=== PATIENT | male | born 1955 | race Caucasian/White ===

== ENCOUNTER → 2018-03-19 11:43 | Outpatient (CLI) | payer OTHER, SELFPAY ==
--- NOTE | 2018-03-19 | DI.CT.S_ITS ---
PROCEDURE: CT CERVICAL SPINE WO CON INDICATIONS: Arthrodesis status TECHNIQUE: Noncontrast 3 mm thick sections acquired from the skull base to the T4 level. Sagittal and coronal reformats were then constructed. For radiation dose reduction, the following was used: automated exposure control, adjustment of mA and/or kV according to patient size. COMPARISON: [facility], CR, CERVICAL SPINE 2 OR 3 VIEWS, 08/19/2014, 8:59. [facility], MR, C-SPINE WITHOUT CONTRAST, 07/09/2014, 15:05. FINDINGS: Image quality: Excellent. Bones: Postoperative changes are seen, with an anterior cervical spine fusion plate at the C4-C7 levels. The fusion plate appears well seated. No findings of hardware failure or hardware loosening are seen. Disc spacers are seen throughout the fused region. No displaced fractures are seen. No suspicious lytic or blastic lesions are seen. Stable underlying degenerative changes are seen. Mild levoconvex upper thoracic scoliotic curvature is seen. Visualized superior ribs are intact. Soft tissues: Prevertebral soft tissues are normal in thickness. No paravertebral hematomas. No apical pneumothoraces. Incidental note is made of an azygos lobe. IMPRESSION: Postoperative changes within normal limits. Dictated by: Larry Johnson M.D. on 03/19/2018 at 11:40 Approved by: Larry Johnson M.D. on 03/19/2018 at 11:43
== END ==
PROVIDERS: PCP Family Medicine; Visit Provider Orthopaedic Surgery Orthopaedic Surgery of the Spine
DX: Z98.1 Arthrodesis status (principal)
CPT/HCPCS: 72125

== ENCOUNTER → 2020-06-01 10:41 | Outpatient (CLI) | payer OTHER, SELFPAY ==
--- NOTE | 2020-06-01 10:45 | DI.CT.S_ITS ---
PROCEDURE: CT CERVICAL SPINE WO CON INDICATIONS: Pain in thoracic spine TECHNIQUE: Noncontrast 3 mm thick sections acquired from the skull base to the T4 level. Sagittal and coronal reformats were then constructed. For radiation dose reduction, the following was used: automated exposure control, adjustment of mA and/or kV according to patient size. COMPARISON: [facility], CR, XR CHEST 2 VIEWS, 07/15/2019, 23:19. [facility], CT, CT CERVICAL SPINE WO CON, 03/19/2018, 11:40. FINDINGS: Image quality: Excellent. Bones: No fractures or dislocations. Visualized superior ribs are intact. A previously present anterior fusion plate spanning from C4 through C7 shows no evidence of loosening or disruption. The morphology of the cervical spine is virtually identical to that present 03/19/18. There is mild posterior bowing of the upper posterior border of C4, as was previously present, producing mild focal spinal stenosis at that site. Soft tissues: Prevertebral soft tissues are normal in thickness. No paravertebral hematomas. No apical pneumothoraces. IMPRESSION: The appearance of the cervical spine is virtually identical to that previously present 03/19/18. A new area of degenerative change or spinal stenosis is not identified. The anterior fusion plate spanning from C4 through C7 is stable over time please note that CT myelography might detect some additional abnormality not visible by noncontrast CT scanning but this is considered unlikely. Additionally, some anterior fusion plates produce less artifact than others during MR scanning and for this reason consideration of MR of the cervical spine may be warranted. Dictated by: Ramsey Parnell M.D. on 06/01/2020 at 11:19 Approved by: Ramsey Parnell M.D. on 06/01/2020 at 11:36
== END ==
PROVIDERS: Referring Provider Orthopaedic Surgery Orthopaedic Surgery of the Spine; Visit Provider Orthopaedic Surgery Orthopaedic Surgery of the Spine
DX: M54.6 Pain in thoracic spine (principal); Z98.1 Arthrodesis status
CPT/HCPCS: 72125

== ENCOUNTER → 2020-10-26 11:56 | Outpatient (CLI) | payer MEDICARE, OTHER, SELFPAY ==
--- NOTE | 2020-10-26 | DI.MRI.S_ITS ---
PROCEDURE: MR SHOULDER LT WO CON INDICATIONS: primary osteoarthritis left shoulder TECHNIQUE: Noncontrast oblique coronal T2 fast spin echo with fat saturation, oblique sagittal T1 spin echo and T2 fast spin echo with fat saturation, axial T1 spin echo and T2 fast spin echo with fat saturation through the shoulder. COMPARISON: None. FINDINGS: Image quality: Excellent. Rotator cuff: Tendinosis and low to moderate grade articular and bursal surface partial thickness tear involving distal supraspinatus at its insertion on the humeral head is seen extending to musculotendinous junction. Distal infraspinatus tendinosis is noted. Distal subscapularis tendon is intact. No full-thickness rotator cuff tendon rupture. Sagittal images demonstrate no significant muscle atrophy. Bones and bursae: No bone marrow contusions or fractures. Moderate acromioclavicular joint osteoarthritic changes are seen with downward osteophyte formation depressing on musculotendinous junction of supraspinatus. Moderate to severe glenohumeral joint osteoarthritic changes also seen. There is small amount of joint fluid and subacromial subdeltoid bursal fluid. Capsule and soft tissues: Global signal abnormality throughout labrum is seen suggestive of extensive labral tear. The glenohumeral ligaments are intact. The long head of the biceps tendon demonstrates normal location and morphology. The rotator interval appears normal, without fibrosis. The coracohumeral ligament is normal in thickness. IMPRESSION: 1. Moderate to severe glenohumeral joint osteoarthritis and moderate acromioclavicular joint osteoarthritis. Small amount of joint fluid and subacromial subdeltoid bursal fluid. 2. Tendinosis and low to moderate grade articular and bursal surface partial thickness tear involving distal supraspinatus extending to musculotendinous junction. Distal infraspinatus tendinosis. 3. Suggestion of extensive left shoulder labral tear. Dictated by: Milan Pavon M.D. on 10/26/2020 at 14:11 Approved by: Milan Pavon M.D. on 10/26/2020 at 14:24
== END ==
PROVIDERS: Referring Provider Orthopaedic Surgery; Visit Provider Orthopaedic Surgery
DX: M75.42 Impingement syndrome of left shoulder (principal); M19.012 Primary osteoarthritis, left shoulder; M75.112 Incomplete rotator cuff tear or rupture of left shoulder, not specified as traumatic
CPT/HCPCS: 73221

== ENCOUNTER → 2020-12-28 08:01 | Outpatient (CLI) | payer MEDICARE, OTHER, SELFPAY ==
--- NOTE | 2020-12-28 08:04 | DI.MRI.S_ITS ---
PROCEDURE: MR ELBOW LT W CON INDICATIONS: Loose body in left elbow TECHNIQUE: Noncontrast coronal proton density fast spin echo and T2 fast spin echo with fat saturation, axial and sagittal T1 spin echo and T2 fast spin echo with fat saturation through the elbow. COMPARISON: [facility] [place], CR, XR ELBOW 1 OR 2 VIEWS LEFT, 12/13/2020, 16:31. FINDINGS: Image quality: Excellent. Lateral structures: The lateral ulnar collateral ligament and radial collateral ligament both appear intact. Marked thickening and T2 hyperintense signal changes involving the common extensor origin. Medial structures: The ulnar collateral ligament appears intact. The overlying common flexor tendon appears normal. The ulnar nerve appears normal in size and signal within the cubital tunnel. Anterior structures: Biceps and brachialis tendons appear grossly intact although there is mild adjacent soft tissue edema and to the insertion of the biceps tendon suggestive of low-grade strain. No bicipitoradial bursal fluid. The median and radial neurovascular bundles appear normal; no focal muscle atrophy to suggest nerve impingement. Posterior structures: Mild distal triceps tendinopathy. This finding technically age indeterminate Bone and cartilage: No bone marrow contusions or fractures. No osteochondral injuries. Mild radiocapitellar joint degeneration. IMPRESSION: Partial tear and tendinopathy involving the common extensor origin suggesting lateral epicondylitis syndrome. Mild distal triceps tendinopathy Mild radiocapitellar joint degeneration Low-grade strain of the distal biceps insertion. Dictated by: Alex Ervin M.D. on 12/28/2020 at 9:44 Approved by: Alex Ervin M.D. on 12/28/2020 at 9:52
== END ==
PROVIDERS: Referring Provider Orthopaedic Surgery; Visit Provider Orthopaedic Surgery
DX: M24.022 Loose body in left elbow (principal); S56.512A Strain of other extensor muscle, fascia and tendon at forearm level, left arm, initial encounter; M19.022 Primary osteoarthritis, left elbow; S46.212A Strain of muscle, fascia and tendon of other parts of biceps, left arm, initial encounter
CPT/HCPCS: 73221

== ENCOUNTER → 2021-03-29 06:36 | Outpatient (CLI) | payer MEDICARE, OTHER, SELFPAY ==
--- NOTE | 2021-03-29 | DI.MRI.S_ITS ---
PROCEDURE: MR LUMBAR SPINE WO CON INDICATIONS: Low back pain, unspecified TECHNIQUE: Noncontrast sagittal T1 spin echo and T2 fast echo, sagittal STIR, axial T1 and T2 fast spin echo through the lumbar spine. In cases with scoliosis, additional coronal T2 fast spin echo may be performed. COMPARISON: [facility], CR, XR LUMBAR SPINE 2 OR 3 VIEWS, 03/16/2021, 10:09. FINDINGS: Image quality: Excellent. Alignment and Curvature: Bilateral L5 pars defects with trace anterolisthesis of L5 on S1 measuring approximately 4 mm. Bone Marrow: Marrow is of normal overall signal. No acute vertebral body compression fractures. Spinal Cord: Conus medullaris terminates at the L1 level. Visualized cord demonstrates normal signal and size. Paraspinous Soft Tissues: No paravertebral masses. T12-L1: No canal stenosis or foraminal stenosis. L1-L2: No canal stenosis or foraminal stenosis. L2-L3: Mild disc bulge. No canal stenosis or foraminal stenosis. L3-L4: Mild disc bulge. Minimal facet hypertrophy. No canal stenosis or foraminal stenosis. L4-L5: Mild disc bulge. Facet hypertrophy. No canal stenosis or foraminal stenosis. L5-S1: Bilateral L5 pars defects. Minimal anterolisthesis of L5 on S1. Bilateral facet hypertrophy. No canal stenosis. [id number] right foraminal narrowing and moderate to severe left foraminal narrowing, with flattening deformity on the exiting right L5 nerve root and impingement on the exiting left L5 nerve root. IMPRESSION: 1. Bilateral L5 pars defects with minimal anterolisthesis of L5 on S1. There is moderate to severe left foraminal narrowing with impingement on the exiting left L5 nerve root. 2. Lower lumbar facet hypertrophy. 3. Multilevel disc bulges. 4. No canal stenosis. Dictated by: Jarad Davis M.D. on 03/29/2021 at 8:26 Approved by: Jarad Davis M.D. on 03/29/2021 at 8:32
== END ==
PROVIDERS: Referring Provider Orthopaedic Surgery Orthopaedic Surgery of the Spine; Visit Provider Orthopaedic Surgery Orthopaedic Surgery of the Spine
DX: M51.26 Other intervertebral disc displacement, lumbar region (principal); M48.061 Spinal stenosis, lumbar region without neurogenic claudication; M48.07 Spinal stenosis, lumbosacral region
CPT/HCPCS: 72148

== ENCOUNTER → 2022-04-18 08:41 | Outpatient (CLI) | payer MEDICARE, OTHER, SELFPAY ==
--- NOTE | 2022-04-18 | DI.MRI.S_ITS ---
PROCEDURE: MR CERVICAL SPINE WO CON INDICATIONS: Spinal stenosis, cervical region TECHNIQUE: Noncontrast sagittal T1 spin echo and T2 fast spin echo, sagittal STIR, foraminal oblique sagittal T2 fast spin echo, and axial gradient echo or T2 fast spin echo through the cervical spine. COMPARISON: [facility], CT, CT CERVICAL SPINE WO CON, 06/01/2020, 10:44. [facility], MR, C-SPINE WITHOUT CONTRAST, 07/09/2014, 15:05. FINDINGS: Image quality: Excellent. Alignment and Curvature: ACDF C4 through C7 with anterior plate and screw fixation and interbody fusion material. Normal alignment. Bone Marrow: Marrow demonstrates normal overall signal. Spinal Cord: Visualized spinal cord has normal size and signal. No cerebellar tonsillar herniation. Paraspinous Soft Tissues: No paravertebral masses. Prevertebral soft tissues are normal in thickness. C2-C3: No canal stenosis or foraminal stenosis. C3-C4: Posterior disc bulge plus osteophyte abutting the cord. AP diameter of the canal is 12.3 mm. Bilateral uncovertebral joint hypertrophy. Moderate to severe bilateral foraminal narrowing with a degree of bilateral foraminal C4 nerve root impingement. C4-C5: Fused. No canal stenosis. Mild bilateral foraminal stenosis. C5-C6: Fused. No central canal stenosis. Moderate right foraminal stenosis with flattening deformity on the exiting right C6 nerve root. Mild left foraminal narrowing. C6-C7: Fused. No canal stenosis. Moderate to severe right foraminal narrowing with a degree of impingement on the exiting right C7 nerve root. Moderate left foraminal narrowing with flattening deformity on the exiting left C7 nerve root. C7-T1: No canal stenosis or foraminal stenosis. IMPRESSION: 1. Remote ACDF at C4 through C7. 2. No central canal stenosis. 3. Multilevel foraminal narrowing as described above. Findings include moderate to severe bilateral foraminal narrowing at C3-C4 and moderate to severe right foraminal narrowing at C6-C7. Dictated by: Jarad Davis M.D. on 04/18/2022 at 12:04 Approved by: Jarad Davis M.D. on 04/18/2022 at 12:25
== END ==
PROVIDERS: PCP Internal Medicine; Referring Provider Physical Medicine & Rehabilitation; Visit Provider Physical Medicine & Rehabilitation
DX: M48.02 Spinal stenosis, cervical region (principal); Z98.1 Arthrodesis status
CPT/HCPCS: 72141

== ENCOUNTER → 2022-04-18 09:49 | Outpatient (CLI) | payer MEDICARE, OTHER, SELFPAY | PROVIDERS: PCP Internal Medicine; Visit Provider Physician Assistant Medical | DX: R10.2 Pelvic and perineal pain (principal) | CPT/HCPCS: 87086 ==

== ENCOUNTER → 2022-04-19 09:29 | Outpatient (CLI) | payer MEDICARE, OTHER, SELFPAY ==
--- NOTE | 2022-04-19 09:31 | DI.CT.S_ITS ---
PROCEDURE: CT ABDOMEN PELVIS W CON INDICATIONS: lower abdominal pain TECHNIQUE: After the administration of intravenous contrast, axial sections acquired from the lung bases to the pubic symphysis. Coronal and sagittal reformats were performed. For radiation dose reduction, the following was used: automated exposure control, adjustment of mA and/or kV according to patient size. COMPARISON: None. FINDINGS: Image quality: Excellent. Lung bases: Unremarkable. Heart: No significant findings. ABDOMEN: Liver: Normal. Gallbladder: Normal Biliary ducts: Nondilated. Pancreas: No peripancreatic inflammatory change or pancreatic ductal dilatation. Spleen: Normal size and appearance. Adrenal Glands: No nodule or mass. Kidneys and Ureters: No perinephric fat stranding or hydroureteronephrosis. Small left renal cyst. Stomach and Bowel: No abnormally dilated or thickened loop of bowel. No pericolonic or mesenteric inflammatory changes. Peritoneum: No abnormal intraperitoneal fluid. No free air. Ventral Wall: No ventral abdominal wall hernia. Abdominal Nodes: No retroperitoneal or mesenteric adenopathy by size criteria. Vessels: Aorta and inferior vena cava are normal in size. PELVIS: Pelvic Organs: Normal urinary bladder and prostate. Pelvic Nodes: No pelvic or inguinal lymphadenopathy. Miscellaneous: No free pelvic fluid. Bones: No acute or suspicious osseous lesion. IMPRESSION: No acute finding. Dictated by: Ryder Stevens M.D. on 04/19/2022 at 11:01 Approved by: Ryder Stevens M.D. on 04/19/2022 at 11:04
[2022-04-19 10:54] LABS: BUN Creatinine Ratio 20.4 (6-22); Blood Urea Nitrogen 20 mg/dL (9-20); Calcium 9.2 mg/dL (8.4-10.2); Carbon Dioxide 30 mmol/L (22-32); Chloride 104 mmol/L (98-107); Estimated Glomerular Filt Rate > 60 mL/min (>60); Glucose 83 mg/dL (80-110); HEMOLYSIS < 15 (0-50); Potassium 4.2 mmol/L (3.4-5.1); Sodium 142 mmol/L (137-145)
== END ==
PROVIDERS: PCP Internal Medicine; Referring Provider Physician Assistant Medical; Visit Provider Physician Assistant Medical
DX: R10.30 Lower abdominal pain, unspecified (principal)
CPT/HCPCS: 36415; 74177; 80048; Q9967

== ENCOUNTER → 2023-02-10 10:39 | Outpatient (CLI) | payer MEDICARE, OTHER, SELFPAY ==
--- NOTE | 2023-02-10 10:41 | DI.MRI.S_ITS ---
PROCEDURE: MR SHOULDER RT WO CON INDICATIONS: BILATERAL ROTATOR CUFF TEAR TECHNIQUE: Noncontrast oblique coronal T2 fast spin echo with fat saturation, oblique sagittal T1 spin echo and T2 fast spin echo with fat saturation, axial T1 spin echo and T2 fast spin echo with fat saturation through the shoulder. COMPARISON: , MR, MR SHOULDER LT WO CON, 10/26/2020, 12:28. FINDINGS: Image quality: Excellent. Rotator cuff: Low to moderate grade articular and bursal surface partial thickness tear involving distal supraspinatus at its insertion on the humeral head is seen extending to musculotendinous junction. Low-grade articular surface partial-thickness tear at its insertion on the humeral head is also seen. There is distal subscapularis tendinosis. No full-thickness rotator cuff tendon rupture. Sagittal images demonstrate no significant rotator cuff muscle atrophy. Bones and bursae: No bone marrow contusions or fractures. Moderate acromioclavicular joint osteoarthritic changes are seen with joint space narrowing, subchondral sclerosis and downward osteophyte formation depressing the musculotendinous junction of supraspinatus. Small to moderate amount of joint effusion and subacromial subdeltoid bursal fluid is seen, no gross intra-articular loose bodies. Capsule and soft tissues: Signal abnormality and fraying of superior anterior labrum at 12 to 2 o'clock position is seen concerning for superior anterior labral tear. Signal are signal abnormalities are also noted involving posterior inferior labrum extending from 6-8 o'clock position. The long head of the biceps tendon demonstrates normal location and morphology. The rotator interval appears normal, without fibrosis. The coracohumeral ligament is normal in thickness. IMPRESSION: 1. Low to moderate grade articular and bursal surface partial thickness tear involving distal supraspinatus extending to musculotendinous junction. Low-grade articular surface partial-thickness tear involving distal infraspinatus. Distal subscapularis tendinosis. No full-thickness rotator cuff tendon rupture. 2. Osteoarthritic changes in acromioclavicular joint and glenohumeral joint. No fracture or dislocation. Small to moderate amount of joint effusion and subacromial subdeltoid bursal fluid. No gross loose bodies. 3. Suggestion of superior anterior labral tear at 12 to 2 o'clock position and posterior inferior labral tear at 6 to 8 o'clock position. Dictated by: Milan Pavon M.D. on 02/11/2023 at 10:04 Approved by: Milan Pavon M.D. on 02/11/2023 at 10:08
--- NOTE | 2023-02-10 10:41 | DI.MRI.S_ITS ---
PROCEDURE: MR SHOULDER LT WO CON INDICATIONS: BILATERAL ROTATOR CUFF TEAR TECHNIQUE: Noncontrast oblique coronal T2 fast spin echo with fat saturation, oblique sagittal T1 spin echo and T2 fast spin echo with fat saturation, axial T1 spin echo and T2 fast spin echo with fat saturation through the shoulder. COMPARISON: [facility], MR, MR SHOULDER RT WO CON, 02/10/2023, 10:50. FINDINGS: Image quality: Excellent. Rotator cuff: Low to moderate grade articular and bursal surface partial thickness tear involving distal supraspinatus at its insertion on the humeral head is seen extending to musculotendinous junction. Distal infraspinatus and subscapularis tendinosis is seen. No full-thickness rotator cuff tendon rupture. Sagittal images demonstrate no significant rotator cuff muscle atrophy. Bones and bursae: No bone marrow contusions or fractures. Mild to moderate acromioclavicular joint osteoarthritic changes are seen with joint space narrowing and downward osteophyte formation depressing the musculotendinous junction of supraspinatus. Moderate glenohumeral joint osteoarthritic changes also noted with joint space narrowing, subchondral sclerosis and cyst formation. Small to moderate amount of joint effusion and subacromial subdeltoid bursal fluid is seen. No gross loose bodies. Capsule and soft tissues: Signal abnormality and fraying of posterior superior labrum from 10-12 o'clock position suggestive of posterior superior labral tear. Signal abnormality and contour irregularity involving anterior inferior labrum extending from 4 to 6 o'clock position is also seen. The long head of the biceps tendon demonstrates normal location and morphology. The rotator interval appears normal, without fibrosis. The coracohumeral ligament is normal in thickness. IMPRESSION: 1. Moderate acromioclavicular joint and glenohumeral joint osteoarthritis. No fracture or dislocation. Small to moderate of joint effusion and subacromial subdeltoid bursal fluid. No gross loose bodies. 2. Low to moderate grade articular and bursal surface partial thickness tear involving distal supraspinatus extending to musculotendinous junction. Distal infraspinatus and subscapularis tendinosis. No full-thickness rotator cuff tendon rupture. 3. Suggestion of superior posterior labral tear at 10 to 12 o'clock position and anterior-inferior labral tear at 4 to 6 o'clock position. Dictated by: Milan Pavon M.D. on 02/11/2023 at 10:08 Approved by: Milan Pavon M.D. on 02/11/2023 at 10:11
== END ==
PROVIDERS: PCP Internal Medicine; Referring Provider Orthopaedic Surgery; Visit Provider Orthopaedic Surgery
DX: M75.111 Incomplete rotator cuff tear or rupture of right shoulder, not specified as traumatic (principal); M75.112 Incomplete rotator cuff tear or rupture of left shoulder, not specified as traumatic; M19.012 Primary osteoarthritis, left shoulder; M25.411 Effusion, right shoulder; M25.412 Effusion, left shoulder
CPT/HCPCS: 73221

== ENCOUNTER → 2023-04-17 11:16 | Outpatient (CLI) | payer MEDICARE, OTHER, SELFPAY ==
--- NOTE | 2023-04-17 | DI.US.S_ITS ---
PROCEDURE: US PERIPH VENOUS UP EXTREM LT INDICATIONS: LEFT FOREARM PAIN TECHNIQUE: Real-time imaging, as well as color and pulse Doppler interrogation, was performed of the left upper extremity deep veins from the inferior neck to the antecubital fossa. COMPARISON: None. FINDINGS: The internal jugular vein, visualized portions of the subclavian vein, axillary, and brachial veins are free of intraluminal thrombus. Where physically possible, the veins are normally compressible. Color and pulse Doppler demonstrate normal intraluminal flow, with expected phasicity and pulsatility. Additional scanning of the cephalic and basilic veins of the superficial system demonstrates normal compressibility, without thrombus. IMPRESSION: No findings of upper extremity deep venous thrombosis. Dictated by: Isabel Alcantara M.D. on 04/17/2023 at 14:22 Approved by: Isabel Alcantara M.D. on 04/17/2023 at 14:22
== END ==
PROVIDERS: PCP Internal Medicine; Referring Provider Orthopaedic Surgery; Visit Provider Orthopaedic Surgery
DX: M79.632 Pain in left forearm (principal)
CPT/HCPCS: 93971

== ENCOUNTER 2023-07-25 06:57 | Day surgery (SDC) | payer MEDICARE, OTHER, SELFPAY ==
--- NOTE | 2023-07-25 | PATH_ITS ---
[facility] Accession Number: [id number] No. of containers..03 Tissue . 01 Material submitted: . PART A: colon - CECAL POLYPS PART B: colon - ASCENDING POLYP PART C: colon - TRANSVERSE POLYP . 01 Diagnosis: Part A: CECAL POLYPS: 1. Tubular adenoma. 2. Colonic mucosa with benign lymphoid aggregate. . Part B: ASCENDING POLYP: Colonic mucosa with benign lymphoid aggregate. No neoplasm identified. . Part C: TRANSVERSE POLYP: Tubular adenoma. [facility] 07/29/2023 1121 Local . 01 Electronically signed: . Augustus Pradhan MD, Pathologist NPI- [id number] . 01 Gross description: . A. Received in formalin with two patient identifiers and cecal polyps, are two osorio soft tissue fragments ranging from 0.5 to 0.6 cm in greatest dimension. Submitted entirely in cassette A1. B. Received in formalin with two patient identifiers and ascending polyp, is one osorio soft tissue fragment measuring 1.0 cm in greatest dimension. Submitted entirely in cassette B1. C. Received in formalin with two patient identifiers and transverse polyp, is a osorio soft tissue fragment measuring 0.3 cm in greatest dimension. Submitted entirely in cassette C1. ([id number]) /[facility]RES 07/29/2023 1114 Local . 01 Pathologist provided ICD-10: D12.0, D12.3, K63.89 . 01 CPT . 406053, 685505, 601032 Performed at: 01 [facility] [address] [place] [address] [id number] MD Augustus Pradhan MD Phone: [phone]
[2023-07-25 07:10] VITALS: BP 155/101; PULSE 89; RESP 17; TEMP 36.3; O2SAT 97
[2023-07-25] MEDS: LACTATED RINGERS 1,000 ML 42 ML IV (07:19)
--- NOTE | 2023-07-25 07:44 | PM.HP.1 ---
History of Present Illness History of Present Illness Date Patient Seen: 07/25/23 Time Patient Seen: 07:44 Chief complaint: Screening Colonoscopy Narrative: Bo is a 67-year-old man who is here for colonoscopy. His last 1 was about 6 years ago and polyps were removed. No family history of colon cancer. [facility] History of spinal fusion Family History Mother FH: breast cancer Sister SVT (supraventricular tachycardia) Social History Smoking Status: Former smoker alcohol intake: never Meds Home Medications and Allergies Home Medications Medication Instructions Recorded Confirmed Type sodium,potassium,mag sulfates 17.5 See Rx Instructions PO .COMPLEX 03/13/23 Rx gram-3.13 gram-1.6 gram oral soln #354 mL (Suprep Bowel Prep Kit) celecoxib 100 mg capsule 100 mg PO BID PRN Pain, Moderate 07/25/23 07/25/23 History Allergies Allergy/AdvReac Type Severity Reaction Status Date / Time codeine AdvReac Intermediate Nausea Verified 07/25/23 07:08 EPINEPHRINE Allergy Unknown MAKES MY Uncoded 07/25/23 07:08 HEART RACE Exam Vital Signs (past 8 hours): - 07/25/23 07:10 Temperature 97.3 F L Pulse Rate 89 Respiratory Rate 17 Blood Pressure 155/101 H Pulse Oximetry 97 Oxygen Delivery Method Room Air Oxygen Delivery Method Room Air Const General: healthy appearing Resp Effort & Inspection: normal respiratory effort Assessment & Plan Assessment and plan (1) Personal history of colonic polyps: Status: Acute Plan We discussed the risks and benefits of colonoscopy for colon cancer screening and he would like to proceed.
--- NOTE | 2023-07-25 08:21 | PM.OP.COLON ---
Operative Date/Time/Diagnoses Date of procedure: 07/25/23 Time of procedure: 08:21 Pre-op diagnosis: Colon cancer screening Post-op diagnosis: same Procedure & Clinicians Study performed: Colonoscopy Same procedure as scheduled: Yes Surgeon: Sincere Singh Procedure Notes Procedure in detail: Surgeon: Sincere Singh MD Anesthesia: Daily Aguilar CRNA Procedure: The patient was brought to the endoscopy suite, placed in left lateral decubitus position. The patient was connected to monitoring devices. A time-out was performed. Sedation was administered. Once the patient was adequately sedated, a digital rectal exam was performed and was normal. The scope was then inserted and advanced to the cecum where the appendiceal orifice was identified and photographed. The scope was then slowly withdrawn over greater than 6 minutes. The mucosa was thoroughly inspected. There were 2 5 mm polyps in the cecum removed with cold snare and sent together. There was a 5 mm polyp in the ascending colon removed with a cold snare. There was a 5 mm polyp in the transverse colon removed with cold snare. The scope was retroflexed in the rectum. No other abnormalities were seen. The scope was straightened and removed. The patient was awakened and brought to recovery. Scope withdrawal time: 15 minutes Sedation time: 23 minutes EBL: 5 mL Findings: Small polyps cecum, ascending colon and transverse colon Post-procedure Disposition: PACU
[2023-07-25 08:22] VITALS: BP 97/67; PULSE 82; RESP 18; TEMP 36.7; O2SAT 96
[2023-07-25 08:27] VITALS: BP 125/88; PULSE 85; RESP 22; O2SAT 96
[2023-07-25 08:32] VITALS: BP 132/93; PULSE 79; RESP 18; TEMP 36.6; O2SAT 96
[2023-07-25 08:44] VITALS: BP 143/92; PULSE 84; RESP 16; O2SAT 96
== END 2023-07-25 09:00 | disposition home or self-care (01) ==
PROVIDERS: PCP Internal Medicine; Referring Provider Surgery; Visit Provider Surgery
PROC: 0DJD8ZZ Inspection of Lower Intestinal Tract, Via Natural or Artificial Opening Endoscopic (ICD-10-PCS; CPT 45378; principal; 2023-07-25 07:45)
DX: Z12.11 Encounter for screening for malignant neoplasm of colon (principal); Z86.010 Personal history of colon polyps; D12.0 Benign neoplasm of cecum; D12.3 Benign neoplasm of transverse colon
CPT/HCPCS: 45385; J2704

== ENCOUNTER → 2023-08-08 13:41 | Outpatient (CLI) | payer MEDICARE, OTHER, SELFPAY ==
--- NOTE | 2023-08-08 13:43 | DI.MRI.S_ITS ---
PROCEDURE: MR SHOULDER LT WO CON INDICATIONS: Incomplete rotator cuff tear or rupture of left sh TECHNIQUE: Noncontrast oblique coronal T2 fast spin echo with fat saturation, oblique sagittal T1 spin echo and T2 fast spin echo with fat saturation, axial T1 spin echo and T2 fast spin echo with fat saturation through the shoulder. COMPARISON: [facility], MR, MR SHOULDER LT WO CON, 02/10/2023, 11:13. FINDINGS: Image quality: Excellent. Rotator cuff: Low to moderate grade articular and bursal surface partial thickness tear involving distal supraspinatus at its insertion on the humeral head is seen extending to musculotendinous junction. Distal infraspinatus tendinosis is noted. The subscapularis tendon is intact. No full-thickness rotator cuff tendon rupture. Sagittal images demonstrate no significant rotator cuff muscle atrophy. Bones and bursae: [id number] acromioclavicular joint osteoarthritic changes are seen with joint space narrowing and downward osteophyte formation depressing the musculotendinous junction of supraspinatus. Moderate to severe glenohumeral joint osteoarthritic changes are noted with near complete loss of joint space, extensive subchondral sclerosis and cyst formation, subcortical edema and marginal osteophyte formation. There is moderate amount of joint effusion and subacromial subdeltoid bursal fluid, no gross loose bodies. Capsule and soft tissues: Global signal abnormality throughout anterior and inferior labrum is seen suggestive of extensive left shoulder labral tear. The long head of the biceps tendon demonstrates normal location and morphology. The rotator interval appears normal, without fibrosis. The coracohumeral ligament is normal in thickness. IMPRESSION: 1. Low to moderate grade articular and bursal surface partial thickness tear involving distal supraspinatus extending to musculotendinous junction. Distal infraspinatus tendinosis. No full-thickness rotator cuff tendon rupture. 2. [id number] acromioclavicular joint osteoarthritis and moderate to severe glenohumeral joint osteoarthritis. No fracture or dislocation. Moderate joint effusion and subacromial subdeltoid bursal fluid, no gross loose bodies. 3. Suggestion of extensive left shoulder labral tear with global signal abnormality throughout the labrum. Dictated by: Milan Pavon M.D. on 08/08/2023 at 16:53 Approved by: Milan Pavon M.D. on 08/08/2023 at 16:56
== END ==
PROVIDERS: PCP Internal Medicine; Referring Provider Orthopaedic Surgery; Visit Provider Orthopaedic Surgery
DX: M75.112 Incomplete rotator cuff tear or rupture of left shoulder, not specified as traumatic (principal); M19.012 Primary osteoarthritis, left shoulder; M25.412 Effusion, left shoulder
CPT/HCPCS: 73221

== ENCOUNTER → 2024-05-15 07:24 | Outpatient (CLI) | payer MEDICARE, OTHER, SELFPAY | PROVIDERS: PCP Internal Medicine; Visit Provider Nurse Practitioner Family | DX: R05.1 Acute cough (principal) | CPT/HCPCS: 87070; 87147 ==

== ENCOUNTER → 2024-08-26 09:14 | Outpatient (CLI) | payer MEDICARE, OTHER, SELFPAY ==
[2024-08-26 10:52] LABS: Prostate Specific Antigen Scrn 0.825 ng/mL (0.1-4.0)
== END ==
PROVIDERS: PCP Internal Medicine; Referring Provider Urology; Visit Provider Urology
DX: Z12.5 Encounter for screening for malignant neoplasm of prostate (principal)
CPT/HCPCS: 36415; G0103